=== PATIENT | male | born 1950 | race Caucasian/White ===

== ENCOUNTER → 2018-07-12 | Outpatient (CLI) | payer BC, MEDICARE ==
--- NOTE | 2018-07-12 10:36 | XR ---
EXAMINATION TYPE: XR chest 2V DATE OF EXAM: 07/12/2018 COMPARISON: NONE HISTORY: Shortness of breath TECHNIQUE: Frontal and lateral views of the chest are obtained. FINDINGS: Scattered senescent parenchymal changes noted. No evidence for infiltrate. No evidence for atelectasis. Heart size is stable. Mediastinal structures are stable and grossly unremarkable. No evidence for hilar prominence. Degenerative changes dorsal spine. IMPRESSION: 1. No evidence for acute pulmonary disease.
[2018-07-12 11:16] LABS: Blood Urea Nitrogen 21 mg/dL (9-20)
--- NOTE | 2018-07-12 15:01 | NM ---
EXAMINATION TYPE: NM bone scan whole body DATE OF EXAM: 07/12/2018 COMPARISON: NONE HISTORY: C61 staging for prostate cancer Delayed whole-body scanning was performed following the injection of 24.7 mCi Tc 99m MDP. Images acq uired 3 hours post injection. FINDINGS: Degenerative uptake about the shoulders, sternoclavicular joints, knees and right midfoot. No evidenc e for intense uptake to suggest metastatic disease at this time. IMPRESSION: No scintigraphic evidence to suggest metastatic disease at this time.
--- NOTE | 2018-07-12 16:24 | CT ---
EXAMINATION TYPE: CT abdomen pelvis w con DATE OF EXAM: 07/12/2018 COMPARISON: None INDICATION: Prostate CA DLP: 1216 mGycm, Automated exposure control for dose reduction was used. CONTRAST: 100 mL of Isovue 300. Study performed with Oral Contrast TECHNIQUE: Axial images were obtained from above the diaphragm to the pubic rami in the axial plane a t 5 mm thick sections. Reconstructed images are reviewed on the computer in the coronal plane. FINDINGS: Limited CT sections are obtained the lung bases. There is a 1.3 cm density within the lingula. Withi n the posterior lateral lung bases there are nodules measuring 0.7 cm. Series [address] ABDOMEN: Liver: Normal Spleen: Normal Pancreas: Normal Adrenal glands: The adrenal glands are normal. Gallbladder: Normal Kidneys: No masses are evident. No hydronephrosis is present. No cysts are present. Delayed images were obtained through the kidneys, which remain unremarkable. Aorta: Vascular calcification is within the aorta. Inferior vena cava: Normal. CT PELVIS: Loops of bowel within the abdomen and pelvis are normal. There are loops of bowel which are incom pletely distended or lack oral contrast limiting their evaluation. Fecal debris is within the colon. Appendix: Normal as visualized. Urinary bladder: Normal. Genitourinary structures: Prostate is prominent. Osseous structures: No suspicious lytic or sclerotic lesions. IMPRESSIONS: 1. Bibasilar lung nodules. Consider CT chest for additional evaluation. 2. Suspicious changes for metastatic disease from prostate cancer are not otherwise identified within the abdomen or pelvis. Prostate is somewhat prominent.
== END | disposition home or self-care (01) ==
LOC: RADNMMAIN 09:38
PROVIDERS: ATTEND Urology
DX: C61 Malignant neoplasm of prostate (principal); R91.8 Other nonspecific abnormal finding of lung field; Z88.6 Allergy status to analgesic agent
CPT/HCPCS: 82565; 84520; 71046; 74177; 36415; 78306; A9503; Q9967

== ENCOUNTER → 2018-11-09 | Outpatient (CLI) | payer MEDICARE ==
--- NOTE | 2018-11-12 15:54 | PE ---
Nuclear medicine PET/CT HISTORY: Prostate carcinoma, initial Patient received 9.4 mCi F-18 FDG intravenously in delayed scanning was performed from the skull base to the mid thighs. Localization and attenuation correction CT scan was performed. Exam is correlated to CT abdomen pelvis 07/12/2018 and to bone scan 07/12/2018 Neck and chest: Bilateral lung nodules are present within the lungs of varying sizes, the largest in the lingula measures approximately 15 mm. At least 4 nodules in the left lung and 5 in the right lung are present. Largest in the right lung in the right lower lobe measures 12 mm. Right upper lobe nodu le also measures 12 mm. There is no mediastinal, axillary, or hilar adenopathy, no cervical adenopath y. Lung nodules show suspected vague uptake within the lingular lesion, SUV only 1.3, small lesions m ay be on the resolution of the exam. ABDOMEN: There is no evident liver mass or retroperitoneal adenopathy. No suspicious hypermetabolic u ptake. No pelvic adenopathy. The prostate is not seen. Urinary bladder shows a markedly thickened wal l and is not distended. Osseous structures show degenerative disc changes in the lower lumbar spine. No suspicious hypermetab olic uptake. IMPRESSION: Multiple lung nodules as described, metastatic disease is not excluded.
== END | disposition home or self-care (01) ==
LOC: RADPETMAIN 10:21
PROVIDERS: ATTEND Urology
DX: R91.8 Other nonspecific abnormal finding of lung field (principal); C61 Malignant neoplasm of prostate
CPT/HCPCS: 78815; A9552